=== PATIENT | female | born 1955 | race Caucasian/White ===

== ENCOUNTER 2020-12-18 07:09 | Outpatient (CLI) | payer OTHER ==
[~2020-12-18 07:09] MED LIST: COREG CR20 MG PO; CRESTOR5 MG PO; DIGOXIN0.125 MG/2 PO; DOLOGEN CAPLET1 TAB; LASIX40 MG PO; MAXITROL EYE DRO5 ML OP; TRICOR145 MG PO; VASOTEC2.5 MG PO
== END 2020-12-18 07:17 | disposition home or self-care (01) ==
LOC: EDBD 07:09 → MAMO-SONO 07:09
PROVIDERS: ATTEND Internal Medicine Cardiovascular Disease
DX: N60.12 Diffuse cystic mastopathy of left breast (principal); N60.11 Diffuse cystic mastopathy of right breast

== ENCOUNTER 2021-12-23 07:50 | Outpatient (CLI) | payer OTHER | END 2021-12-23 08:03 | disposition home or self-care (01) | LOC: MAMO-SONO 07:50 | PROVIDERS: ATTEND Internal Medicine Endocrinology, Diabetes & Metabolism | DX: N64.1 Fat necrosis of breast (principal) ==

== ENCOUNTER 2023-04-27 07:11 | Outpatient (CLI) | payer OTHER | END 2023-04-27 07:19 | disposition home or self-care (01) | LOC: MAMO-SONO 07:11 | PROVIDERS: ATTEND Internal Medicine Cardiovascular Disease | DX: Z12.31 Encounter for screening mammogram for malignant neoplasm of breast (principal); N60.12 Diffuse cystic mastopathy of left breast; N60.11 Diffuse cystic mastopathy of right breast ==

== ENCOUNTER 2024-09-13 07:53 | Outpatient (CLI) | payer OTHER | END 2024-09-13 08:00 | disposition home or self-care (01) | LOC: MAMO-SONO 07:53 | PROVIDERS: ATTEND Internal Medicine Cardiovascular Disease | DX: N60.11 Diffuse cystic mastopathy of right breast (principal); N60.12 Diffuse cystic mastopathy of left breast; Z12.31 Encounter for screening mammogram for malignant neoplasm of breast ==